=== PATIENT | female | born 1985 | race Two or more races ===

== ENCOUNTER 2020-12-09 17:38 | Outpatient (CLI) | payer OTHER | END 2020-12-09 18:00 | disposition home or self-care (01) | LOC: LAB 17:38 | PROVIDERS: ATTEND Obstetrics & Gynecology Maternal & Fetal Medicine | DX: B00.89 Other herpesviral infection (principal); O98.511 Other viral diseases complicating pregnancy, first trimester ==

== ENCOUNTER 2021-07-14 14:00 | Inpatient (IN) | payer OTHER ==
[~2021-07-14] VITALS: Ht 157.5 cm; Wt 81.6 kg
[2021-07-28] MEDS ORDERED: PRENATAL TABLE1 EAC1 PO (09:26)
[2021-07-28] MEDS ORDERED: VALTREX1000 MG PO (09:26)
[2021-07-29] MEDS ORDERED: TERCONAZOLE45 GM (10:53)
== END 2021-07-30 13:40 | disposition home or self-care (01) | DRG 807 ==
LOC: OB/GYN 07-28 07:25 → LDR 07-28 07:25 → OB/GYN 07-28 16:32 → LDR 07-30 14:00
PROVIDERS: ADMIT Obstetrics & Gynecology Maternal & Fetal Medicine; ATTEND Obstetrics & Gynecology Maternal & Fetal Medicine
PROC: 10E0XZZ Delivery of Products of Conception, External Approach (ICD-10-PCS; principal; 2021-07-28)
PROC: 0KQM0ZZ Repair Perineum Muscle, Open Approach (ICD-10-PCS; 2021-07-28)
PROC: 4A1HXCZ Monitoring of Products of Conception, Cardiac Rate, External Approach (ICD-10-PCS; 2021-07-28)
DX: O70.1 Second degree perineal laceration during delivery (principal); Z37.0 Single live birth; Z3A.39 39 weeks gestation of pregnancy; Z20.822 Contact with and (suspected) exposure to COVID-19

== ENCOUNTER 2021-07-26 11:24 | Outpatient (CLI) | payer OTHER | END 2021-07-26 12:05 | disposition home or self-care (01) | LOC: NST 11:24 | PROVIDERS: ATTEND Obstetrics & Gynecology Maternal & Fetal Medicine | DX: Z34.83 Encounter for supervision of other normal pregnancy, third trimester (principal) ==